=== PATIENT | male | born 1945 | race Caucasian/White ===

== ENCOUNTER 2017-11-03 12:13 | Inpatient (IN) | payer MEDICARE, BC ==
[~2017-11-03] VITALS: Ht 177.8 cm; Wt 97.0 kg
[~2017-11-03 12:13] MED LIST: ACET-2319 PO; ALT5C PO; AMIO200T57 PO; ASPI-10; ASPI-109; ATEN100T PO; CHOL500050 PO; CLOP75TA15 PO; DIAZ5TAB PO; FLUT1DIS4 INH; HYDR12.5 PO; MAGN400C PO; NITR0.4T48 SL; ROSU40TA PO; [UNRECOGNIZED DRUG - CODE] PO
[2017-11-03 13:07] LABS: BASOPHILS % (AUTO) 0 % (0-1); EOSINOPHILS % (AUTO) 0 % (0-6); HEMATOCRIT 37.8 % (42.0-52.0); HEMOGLOBIN 13.1 g/dl (14.0-17.9); LYMPHOCYTES # (AUTO) 0.7 X10'3 (1.1-4.8); LYMPHOCYTES % (AUTO) 4.6 % (21-51); MEAN CORPUSCULAR HEMOGLOBIN 33.8 PG (27.0-31.0); MEAN CORPUSCULAR HGB CONC 34.8 % (33.0-36.5); MEAN CORPUSCULAR VOLUME 97.1 FL (78-98); MEAN PLATELET VOLUME 8.1 FL (7.4-10.4); MONOCYTES # (AUTO) 1.2 X10'3 (0-0.9); MONOCYTES % (AUTO) 8.2 % (2-12); NEUTROPHILS # (AUTO) 13.1 X10'3 (1.8-7.7); NEUTROPHILS % (AUTO) 87.2 % (42-75); PLATELET COUNT 233 X10'3 (140-440); RED BLOOD COUNT 3.89 X10'6 (4.70-6.10); RED CELL DISTRIBUTION WIDTH 15.1 % (11.5-14.5)
[2017-11-03 13:17] LABS: INR 1.1 INR; PARTIAL THROMBOPLASTIN TIME 32 SECONDS (22-32); PROTHROMBIN TIME 11.2 SECONDS (9.0-12.0)
[2017-11-03 13:28] LABS: ALANINE AMINOTRANSFERASE 203 U/L (12-78); ALBUMIN 2.7 G/DL (3.4-5.0); ALBUMIN/GLOBULIN RATIO 0.6 (1.1-1.5); ALKALINE PHOSPHATASE 89 IU/L (46-116); ANION GAP 10 (8-16); ASPARTATE AMINO TRANSFERASE 321 U/L (10-37); BILIRUBIN,TOTAL 0.6 MG/DL (0.1-1.0); BLOOD UREA NITROGEN 36 MG/DL (7-18); CALCIUM 8.7 MG/DL (8.5-10.1); CHLORIDE 97 MMOL/L (99-107); GLUCOSE 98 MG/DL (70-104); MAGNESIUM 1.9 MG/DL (1.5-2.4); POTASSIUM 3.9 MMOL/L (3.5-5.1); SODIUM 136 MMOL/L (135-145); TOTAL CARBON DIOXIDE 28.6 MMOL/L (24-32); TOTAL PROTEIN 7.6 G/DL (6.4-8.2); eGFR 33 ML/MIN
[2017-11-03 14:45] LABS: TOTAL CELLS COUNTED 100
[2017-11-03 14:47] LABS: PLATELET ESTIMATE NORMAL
[2017-11-03] MEDS ORDERED: magnesium hydroxide 30ml (MOM) UD suspension PO PRN (15:10)
[2017-11-03] MEDS ORDERED: mag hydrox/Alum hydrox/simeth 30ml oral suspension PO PRN (15:10)
[2017-11-03 15:15] LABS: CLARITY,URINE Cloudy (Clear); COLOR,URINE Yellow (Yellow); GLUCOSE, URINE Negative (Neg); KETONES,URINE Negative (Neg); LEUKOCYTE ESTERASE ,URINE Negative (Neg); NITRITES, URINE Negative (Neg); OCCULT BLOOD,URINE Moderate (Neg); PROTEIN,URINE 30 mg/dl (Neg); UROBILINOGEN,URINE 0.2 E.U/dL (0.2-1.0)
[2017-11-03] MEDS ORDERED: levoFLOXACIN-Levaquin 500mg/D5 100 ML IV ONE (15:15)
[2017-11-03 15:16] LABS: UA COLLECTION TYPE STRAIGHT CATH
[2017-11-03 15:20] LABS: AMORPHOUS URATES 1+; BACTERIA,URINE NONE SEEN /HPF (Neg); SQUAMOUS EPITHELIAL CELL,UR NONE SEEN /LPF (FEW); WBC,URINE NONE SEEN /HPF (0-4)
[2017-11-03] MEDS ORDERED: azithromycin/NS 500mg/250ml 250 ML IV ONE (15:20)
[2017-11-03] MEDS: normal saline 1000ml 1,000 ML IV SCH ×2 (15:58→23:04)
[2017-11-03] MEDS ORDERED: vitamin D (cholecalciferol) 1,000 unit tablet PO SCH (16:15)
[2017-11-03] MEDS: amiodarone 200mg tablet PO SCH (16:15)
[2017-11-03] MEDS: clopidogrel 75mg tablet PO SCH (16:15)
[2017-11-03] MEDS ORDERED: nitroGLYCERIN 0.4mg SUBLingual tab SL PRN (16:15)
[2017-11-03 18:20] LABS: ALANINE AMINOTRANSFERASE 203 U/L (12-78); ALBUMIN 2.3 G/DL (3.4-5.0); ALBUMIN/GLOBULIN RATIO 0.5 (1.1-1.5); ALKALINE PHOSPHATASE 78 IU/L (46-116); ASPARTATE AMINO TRANSFERASE 315 U/L (10-37); BILIRUBIN,DIRECT 0.2 MG/DL (0-0.3); BILIRUBIN,TOTAL 0.5 MG/DL (0.1-1.0); TOTAL PROTEIN 6.8 G/DL (6.4-8.2)
[2017-11-03 20:40] VITALS: BP 129/57
[2017-11-03] MEDS ORDERED: diazepam 5mg tablet PO PRN (20:40)
[2017-11-03] MEDS ORDERED: acetaminophen 325mg tablet PO SCH (21:00)
[2017-11-03] MEDS: ondansetron/PF 4mg/2ml inj IV PRN (22:30)
[2017-11-03 23:00] VITALS: BP 110/55
[2017-11-04 03:00] VITALS: BP 95/59
[2017-11-04 03:27] LABS: BASOPHILS % (AUTO) 0.1 % (0-1); EOSINOPHILS % (AUTO) 0 % (0-6); HEMATOCRIT 37.2 % (42.0-52.0); HEMOGLOBIN 12.6 g/dl (14.0-17.9); LYMPHOCYTES # (AUTO) 0.7 X10'3 (1.1-4.8); LYMPHOCYTES % (AUTO) 5.3 % (21-51); MEAN CORPUSCULAR HEMOGLOBIN 33.6 PG (27.0-31.0); MEAN CORPUSCULAR HGB CONC 33.8 % (33.0-36.5); MEAN CORPUSCULAR VOLUME 99.4 FL (78-98); MEAN PLATELET VOLUME 8.7 FL (7.4-10.4); MONOCYTES # (AUTO) 1.4 X10'3 (0-0.9); NEUTROPHILS # (AUTO) 11.7 X10'3 (1.8-7.7); NEUTROPHILS % (AUTO) 84.6 % (42-75); PLATELET COUNT 210 X10'3 (140-440); RED BLOOD COUNT 3.74 X10'6 (4.70-6.10); RED CELL DISTRIBUTION WIDTH 15.7 % (11.5-14.5); WHITE BLOOD COUNT 13.8 X10'3 (4.5-11.0)
[2017-11-04 03:47] LABS: ALANINE AMINOTRANSFERASE 253 U/L (12-78); ALBUMIN 2.3 G/DL (3.4-5.0); ALBUMIN/GLOBULIN RATIO 0.5 (1.1-1.5); ALKALINE PHOSPHATASE 78 IU/L (46-116); ANION GAP 7 (8-16); ASPARTATE AMINO TRANSFERASE 388 U/L (10-37); BILIRUBIN,TOTAL 0.4 MG/DL (0.1-1.0); BLOOD UREA NITROGEN 42 MG/DL (7-18); BUN/CREATININE RATIO 21.2 (5.4-32.0); CHLORIDE 102 MMOL/L (99-107); CREATININE 1.98 MG/DL (0.60-1.10); GLUCOSE 107 MG/DL (70-104); POTASSIUM 3.8 MMOL/L (3.5-5.1); SODIUM 139 MMOL/L (135-145); TOTAL CARBON DIOXIDE 30.1 MMOL/L (24-32); TOTAL PROTEIN 6.9 G/DL (6.4-8.2); eGFR 33 ML/MIN
[2017-11-04] MEDS: acetaminophen 325mg tablet PO PRN ×2 (03:51→23:06)
[2017-11-04] MEDS: normal saline 1000ml 1,000 ML IV SCH ×2 (04:56→11:15)
[2017-11-04 06:00] VITALS: BP 90/50
[2017-11-04] MEDS: atorvastatin 20mg tablet PO SCH (07:40)
[2017-11-04] MEDS: amiodarone 200mg tablet PO SCH (07:40)
[2017-11-04] MEDS: clopidogrel 75mg tablet PO SCH (07:40)
[2017-11-04] MEDS ORDERED: aspirin 325mg tablet PO SCH (08:00)
[2017-11-04 11:00] VITALS: BP 124/68
[2017-11-04] MEDS: ondansetron/PF 4mg/2ml inj IV PRN ×2 (14:34→23:04)
[2017-11-04 15:00] VITALS: BP 102/50
[2017-11-04] MEDS ORDERED: cefTRIAXone 1g/NS 100ml IVPB 100 ML IV ONE (18:50)
[2017-11-04] MEDS ORDERED: azithromycin/NS 500mg/250ml 250 ML IV ONE (18:50)
[2017-11-04 19:00] VITALS: BP 114/54
[2017-11-04] MEDS: ipratropium/albuterol 3ml nebule IH PRN ×2 (19:54→23:28)
[2017-11-04 22:36] LABS: ABG BASE EXCESS -1.6 mmol/L (-2.0-3.0); ABG HCO3 25.7 mmol/L (22.0-26.0); ABG PCO2 (T) 56.9 mmHg (35.0-48.0); ABG PH (T) 7.278 (7.350-7.450); ABG PO2 (T) 83.7 mmHg (83-108); FCOHb 0.7 % (0.5-1.5); FLOW 6 L/min; FMetHb 0.3 % (0.3-1.12); FO2Hb 93.1 % (94-100); PATIENT TEMPERATURE 38.1; RESPIRATORY RATE (OBSERVED) 28 b/min; TOTAL HEMOGLOBIN 12.6 G/dl (14.0-18.0)
[2017-11-04] MEDS ORDERED: proCHLORperazine 10 MG/2 ml inj IV PRN (22:50)
[2017-11-04 23:00] VITALS: BP 85/60
[2017-11-04] MEDS: diazepam 5mg tablet PO PRN (23:12)
[2017-11-05] VITALS (8 sets, daily range): BP systolic 88–111; BP diastolic 47–60
[2017-11-05 01:06] LABS: ABG BASE EXCESS -1.6 mmol/L (-2.0-3.0); ABG HCO3 25.3 mmol/L (22.0-26.0); ABG OXYGEN SATURATION 90.3 % (95-98); ABG PCO2 (T) 53.4 mmHg (35.0-48.0); ABG PH (T) 7.296 (7.350-7.450); ABG PO2 (T) 63.4 mmHg (83-108); ALLEN'S TEST Positive; FCOHb 0.4 % (0.5-1.5); FMetHb 0.3 % (0.3-1.12); FO2Hb 89.7 % (94-100); MINUTE VOLUME 10 L/min; PATIENT TEMPERATURE 37.7; RESPIRATORY RATE (OBSERVED) 20 b/min; TOTAL HEMOGLOBIN 12.1 G/dl (14.0-18.0)
[2017-11-05] MEDS: ipratropium/albuterol 3ml nebule IH PRN ×3 (03:25→23:30)
[2017-11-05] MEDS: cefTRIAXone 1g/NS 100ml IVPB 100 ML IV SCH (08:23)
[2017-11-05] MEDS: azithromycin/NS 500mg/250ml 250 ML IV SCH (09:22)
[2017-11-05] MEDS: atorvastatin 20mg tablet PO SCH (09:24)
[2017-11-05] MEDS: clopidogrel 75mg tablet PO SCH (09:24)
[2017-11-05] MEDS: aspirin 81mg tab.chew PO SCH (09:25)
[2017-11-05] MEDS: acetaminophen 325mg tablet PO PRN ×2 (13:35→19:55)
[2017-11-05 20:40] LABS: ABG BASE EXCESS -1.4 mmol/L (-2.0-3.0); ABG HCO3 24.2 mmol/L (22.0-26.0); ABG OXYGEN SATURATION 87.8 % (95-98); ABG PCO2 (T) 48.7 mmHg (35.0-48.0); ABG PH (T) 7.324 (7.350-7.450); FCOHb 0.5 % (0.5-1.5); FLOW 5 L/min; FMetHb 0.3 % (0.3-1.12); FO2Hb 87.1 % (94-100); PATIENT TEMPERATURE 39.2; RESPIRATORY RATE (OBSERVED) 22 b/min; TOTAL HEMOGLOBIN 12.1 G/dl (14.0-18.0)
[2017-11-05 21:19] LABS: BASOPHILS % (AUTO) 0.1 % (0-1); EOSINOPHILS % (AUTO) 0 % (0-6); HEMATOCRIT 35.9 % (42.0-52.0); HEMOGLOBIN 12.1 g/dl (14.0-17.9); LYMPHOCYTES % (AUTO) 9.5 % (21-51); MEAN CORPUSCULAR HEMOGLOBIN 33.4 PG (27.0-31.0); MEAN CORPUSCULAR HGB CONC 33.9 % (33.0-36.5); MEAN CORPUSCULAR VOLUME 98.6 FL (78-98); MEAN PLATELET VOLUME 8.9 FL (7.4-10.4); NEUTROPHILS % (AUTO) 81.4 % (42-75); PLATELET COUNT 193 X10'3 (140-440); RED BLOOD COUNT 3.64 X10'6 (4.70-6.10); RED CELL DISTRIBUTION WIDTH 16.4 % (11.5-14.5)
[2017-11-05 21:34] LABS: ALANINE AMINOTRANSFERASE 296 U/L (12-78); ALBUMIN/GLOBULIN RATIO 0.4 (1.1-1.5); ALKALINE PHOSPHATASE 88 IU/L (46-116); ANION GAP 6 (8-16); ASPARTATE AMINO TRANSFERASE 464 U/L (10-37); BILIRUBIN,TOTAL 0.4 MG/DL (0.1-1.0); BLOOD UREA NITROGEN 55 MG/DL (7-18); BUN/CREATININE RATIO 23.4 (5.4-32.0); CHLORIDE 103 MMOL/L (99-107); CREATININE 2.35 MG/DL (0.60-1.10); GLUCOSE 123 MG/DL (70-104); POTASSIUM 4.1 MMOL/L (3.5-5.1); SODIUM 138 MMOL/L (135-145); TOTAL CARBON DIOXIDE 28.8 MMOL/L (24-32); TOTAL PROTEIN 6.5 G/DL (6.4-8.2); eGFR 27 ML/MIN
[2017-11-05] MEDS: diazepam 5mg tablet PO PRN (22:28)
[2017-11-06] MEDS: acetaminophen 325mg tablet PO PRN ×2 (02:20→19:38)
[2017-11-06] MEDS ORDERED: LORazepam 2 mg/ml vial IV PRN (02:55)
[2017-11-06 03:00] VITALS: BP 122/72
[2017-11-06] MEDS: ipratropium/albuterol 3ml nebule IH PRN (03:34)
[2017-11-06] MEDS: LORazepam 2 mg/ml vial IV PRN ×3 (05:07→11:42)
[2017-11-06 06:09] LABS: BASOPHILS % (AUTO) 0 % (0-1); EOSINOPHILS % (AUTO) 0 % (0-6); HEMATOCRIT 31.9 % (42.0-52.0); HEMOGLOBIN 10.9 g/dl (14.0-17.9); LYMPHOCYTES # (AUTO) 0.7 X10'3 (1.1-4.8); LYMPHOCYTES % (AUTO) 8.4 % (21-51); MEAN CORPUSCULAR HEMOGLOBIN 33.1 PG (27.0-31.0); MEAN CORPUSCULAR HGB CONC 34.1 % (33.0-36.5); MEAN CORPUSCULAR VOLUME 97.2 FL (78-98); MEAN PLATELET VOLUME 8.5 FL (7.4-10.4); MONOCYTES # (AUTO) 0.8 X10'3 (0-0.9); MONOCYTES % (AUTO) 9.1 % (2-12); NEUTROPHILS % (AUTO) 82.5 % (42-75); PLATELET COUNT 180 X10'3 (140-440); RED BLOOD COUNT 3.28 X10'6 (4.70-6.10); RED CELL DISTRIBUTION WIDTH 16.6 % (11.5-14.5); WHITE BLOOD COUNT 8.5 X10'3 (4.5-11.0)
[2017-11-06 06:32] LABS: ALANINE AMINOTRANSFERASE 250 U/L (12-78); ALBUMIN 1.8 G/DL (3.4-5.0); ALBUMIN/GLOBULIN RATIO 0.5 (1.1-1.5); ALKALINE PHOSPHATASE 78 IU/L (46-116); ANION GAP 7 (8-16); ASPARTATE AMINO TRANSFERASE 401 U/L (10-37); BILIRUBIN,DIRECT 0.2 MG/DL (0-0.3); BILIRUBIN,TOTAL 0.4 MG/DL (0.1-1.0); BLOOD UREA NITROGEN 55 MG/DL (7-18); BUN/CREATININE RATIO 22.4 (5.4-32.0); CHLORIDE 105 MMOL/L (99-107); CREATININE 2.45 MG/DL (0.60-1.10); GLUCOSE 110 MG/DL (70-104); POTASSIUM 3.7 MMOL/L (3.5-5.1); SODIUM 141 MMOL/L (135-145); TOTAL CARBON DIOXIDE 29.2 MMOL/L (24-32); TOTAL PROTEIN 5.8 G/DL (6.4-8.2); eGFR 26 ML/MIN
[2017-11-06 07:00] VITALS: BP 99/46
[2017-11-06] MEDS: aspirin 81mg tab.chew PO SCH (07:35)
[2017-11-06] MEDS: clopidogrel 75mg tablet PO SCH (07:35)
[2017-11-06] MEDS: atorvastatin 20mg tablet PO SCH (07:35)
[2017-11-06] MEDS: cefTRIAXone 1g/NS 100ml IVPB 100 ML IV SCH (07:35)
[2017-11-06] MEDS: azithromycin/NS 500mg/250ml 250 ML IV SCH (08:48)
[2017-11-06 11:00] VITALS: BP 103/60
[2017-11-06] MEDS: LACTOSE-FREE FOOD 237ML (BOOST) PO SCH ×2 (13:00→18:00)
[2017-11-06 15:00] VITALS: BP 100/49
[2017-11-06] MEDS: lactobacillus rhamnosus 10,000 MMU CELLS/CAPSULE PO SCH (17:18)
[2017-11-06 19:00] VITALS: BP 107/39
[2017-11-06 22:25] LABS: ABG BASE EXCESS 0.9 mmol/L (-2.0-3.0); ABG HCO3 26.9 mmol/L (22.0-26.0); ABG OXYGEN SATURATION 90.3 % (95-98); ABG PCO2 (T) 49.5 mmHg (35.0-48.0); ABG PH (T) 7.354 (7.350-7.450); ABG PO2 (T) 61.4 mmHg (83-108); ALLEN'S TEST Positive; FCOHb 0.5 % (0.5-1.5); FLOW 5 L/min; FMetHb 0.3 % (0.3-1.12); FO2Hb 89.6 % (94-100); PATIENT TEMPERATURE 37.2; RESPIRATORY RATE (OBSERVED) 20 b/min
[2017-11-06 23:00] VITALS: BP 119/62
[2017-11-07 03:00] VITALS: BP 118/54
[2017-11-07 05:28] LABS: BASOPHILS % (AUTO) 0 % (0-1); EOSINOPHILS % (AUTO) 0 % (0-6); HEMATOCRIT 33.7 % (42.0-52.0); HEMOGLOBIN 11.8 g/dl (14.0-17.9); LYMPHOCYTES # (AUTO) 0.8 X10'3 (1.1-4.8); LYMPHOCYTES % (AUTO) 5.9 % (21-51); MEAN CORPUSCULAR HEMOGLOBIN 33.7 PG (27.0-31.0); MEAN CORPUSCULAR VOLUME 96.3 FL (78-98); MEAN PLATELET VOLUME 8.9 FL (7.4-10.4); MONOCYTES # (AUTO) 1.1 X10'3 (0-0.9); NEUTROPHILS # (AUTO) 12.2 X10'3 (1.8-7.7); NEUTROPHILS % (AUTO) 86.1 % (42-75); PLATELET COUNT 178 X10'3 (140-440); RED CELL DISTRIBUTION WIDTH 16.2 % (11.5-14.5); WHITE BLOOD COUNT 14.2 X10'3 (4.5-11.0)
[2017-11-07 05:58] LABS: ALANINE AMINOTRANSFERASE 244 U/L (12-78); ALBUMIN 1.8 G/DL (3.4-5.0); ALBUMIN/GLOBULIN RATIO 0.4 (1.1-1.5); ALKALINE PHOSPHATASE 99 IU/L (46-116); ANION GAP 8 (8-16); ASPARTATE AMINO TRANSFERASE 424 U/L (10-37); BILIRUBIN,TOTAL 0.5 MG/DL (0.1-1.0); BLOOD UREA NITROGEN 47 MG/DL (7-18); BUN/CREATININE RATIO 22.1 (5.4-32.0); CALCIUM 7.9 MG/DL (8.5-10.1); CHLORIDE 104 MMOL/L (99-107); CREATININE 2.13 MG/DL (0.60-1.10); GLUCOSE 111 MG/DL (70-104); SODIUM 140 MMOL/L (135-145); TOTAL CARBON DIOXIDE 28.3 MMOL/L (24-32); TOTAL PROTEIN 5.9 G/DL (6.4-8.2); eGFR 31 ML/MIN
[2017-11-07 06:00] VITALS: BP 94/50
[2017-11-07] MEDS: LACTOSE-FREE FOOD 237ML (BOOST) PO SCH ×3 (08:00→18:00)
[2017-11-07] MEDS: atorvastatin 20mg tablet PO SCH (08:00)
[2017-11-07] MEDS: clopidogrel 75mg tablet PO SCH (08:00)
[2017-11-07] MEDS: azithromycin/NS 500mg/250ml 250 ML IV SCH (08:21)
[2017-11-07] MEDS: lactobacillus rhamnosus 10,000 MMU CELLS/CAPSULE PO SCH ×2 (08:21→17:30)
[2017-11-07] MEDS: aspirin 81mg tab.chew PO SCH (08:30)
[2017-11-07] MEDS: cefTRIAXone 1g/NS 100ml IVPB 100 ML IV SCH (09:43)
[2017-11-07 11:00] VITALS: BP 113/47
[2017-11-07 15:00] VITALS: BP 109/59
[2017-11-07 19:00] VITALS: BP 100/46
[2017-11-07 23:00] VITALS: BP 109/49
[2017-11-08] VITALS (8 sets, daily range): BP systolic 94–108; BP diastolic 41–57
[2017-11-08] MEDS: azithromycin/NS 500mg/250ml 250 ML IV SCH (07:13)
[2017-11-08] MEDS: LACTOSE-FREE FOOD 237ML (BOOST) PO SCH ×3 (08:00→18:00)
[2017-11-08] MEDS: cefTRIAXone 1g/NS 100ml IVPB 100 ML IV SCH (08:33)
[2017-11-08] MEDS: atorvastatin 20mg tablet PO SCH (08:35)
[2017-11-08] MEDS: lactobacillus rhamnosus 10,000 MMU CELLS/CAPSULE PO SCH ×2 (08:35→17:30)
[2017-11-08] MEDS: clopidogrel 75mg tablet PO SCH (08:37)
[2017-11-08] MEDS: aspirin 81mg tab.chew PO SCH (08:37)
[2017-11-08 13:45] LABS: ABG BASE EXCESS 2.8 mmol/L (-2.0-3.0); ABG HCO3 29.7 mmol/L (22.0-26.0); ABG OXYGEN SATURATION 90.1 % (95-98); ABG PCO2 (T) 56.9 mmHg (35.0-48.0); ABG PH (T) 7.336 (7.350-7.450); ABG PO2 (T) 60.9 mmHg (83-108); ALLEN'S TEST Positive; FCOHb 0.7 % (0.5-1.5); FLOW 5 L/min; FMetHb 0.3 % (0.3-1.12); FO2Hb 89.2 % (94-100)
[2017-11-08 14:53] LABS: SODIUM,URINE RANDOM < 15 MEQ/L
[2017-11-09] VITALS (8 sets, daily range): BP systolic 101–113; BP diastolic 42–54
[2017-11-09] MEDS ORDERED: albumin (human) 25% 100 ML IV solution IV ONE (00:45)
[2017-11-09] MEDS ORDERED: furosemide 40mg/4ml inj IV ONE (00:45)
[2017-11-09] MEDS: azithromycin/NS 500mg/250ml 250 ML IV SCH (08:00)
[2017-11-09] MEDS: LACTOSE-FREE FOOD 237ML (BOOST) PO SCH ×3 (08:00→18:00)
[2017-11-09] MEDS: lactobacillus rhamnosus 10,000 MMU CELLS/CAPSULE PO SCH ×2 (10:39→17:06)
[2017-11-09] MEDS: atorvastatin 20mg tablet PO SCH (10:40)
[2017-11-09] MEDS: aspirin 81mg tab.chew PO SCH (10:40)
[2017-11-09] MEDS: clopidogrel 75mg tablet PO SCH (10:40)
[2017-11-09] MEDS: cefTRIAXone 1g/NS 100ml IVPB 100 ML IV SCH (10:42)
[2017-11-09] MEDS ORDERED: ipratropium/albuterol 3ml nebule NEB PRN (14:00)
[2017-11-09] MEDS: ipratropium/albuterol 3ml nebule NEB SCH ×2 (14:40→20:11)
[2017-11-09] MEDS: normal saline 1000ml 1,000 ML IV SCH ×2 (17:06→23:18)
[2017-11-10] MEDS ORDERED: LORazepam 2 mg/ml vial IV PRN (00:10)
[2017-11-10 03:00] VITALS: BP 120/48
[2017-11-10] MEDS: ipratropium/albuterol 3ml nebule NEB SCH ×4 (03:43→20:16)
[2017-11-10 06:44] VITALS: BP 125/54
[2017-11-10 06:58] LABS: BASOPHILS % (AUTO) 0.1 % (0-1); EOSINOPHILS # (AUTO) 0.1 X10'3 (0-0.9); EOSINOPHILS % (AUTO) 1.1 % (0-6); HEMOGLOBIN 10.3 g/dl (14.0-17.9); LYMPHOCYTES # (AUTO) 0.5 X10'3 (1.1-4.8); LYMPHOCYTES % (AUTO) 5.6 % (21-51); MEAN CORPUSCULAR HEMOGLOBIN 33.2 PG (27.0-31.0); MEAN CORPUSCULAR HGB CONC 34.3 % (33.0-36.5); MEAN CORPUSCULAR VOLUME 96.8 FL (78-98); MONOCYTES # (AUTO) 1.1 X10'3 (0-0.9); MONOCYTES % (AUTO) 11.9 % (2-12); NEUTROPHILS # (AUTO) 7.3 X10'3 (1.8-7.7); NEUTROPHILS % (AUTO) 81.3 % (42-75); PLATELET COUNT 204 X10'3 (140-440); RED CELL DISTRIBUTION WIDTH 16.6 % (11.5-14.5)
[2017-11-10] MEDS: cefTRIAXone 1g/NS 100ml IVPB 100 ML IV SCH (07:36)
[2017-11-10] MEDS: lactobacillus rhamnosus 10,000 MMU CELLS/CAPSULE PO SCH ×2 (07:36→21:22)
[2017-11-10] MEDS: clopidogrel 75mg tablet PO SCH (07:36)
[2017-11-10] MEDS: aspirin 81mg tab.chew PO SCH (07:36)
[2017-11-10] MEDS: azithromycin/NS 500mg/250ml 250 ML IV SCH (07:36)
[2017-11-10 07:37] LABS: ALANINE AMINOTRANSFERASE 150 U/L (12-78); ALBUMIN/GLOBULIN RATIO 0.5 (1.1-1.5); ALKALINE PHOSPHATASE 158 IU/L (46-116); ANION GAP 8 (8-16); ASPARTATE AMINO TRANSFERASE 246 U/L (10-37); BILIRUBIN,TOTAL 1.3 MG/DL (0.1-1.0); BLOOD UREA NITROGEN 53 MG/DL (7-18); BUN/CREATININE RATIO 25.2 (5.4-32.0); CALCIUM 7.8 MG/DL (8.5-10.1); CHLORIDE 107 MMOL/L (99-107); GLUCOSE 100 MG/DL (70-104); POTASSIUM 3.4 MMOL/L (3.5-5.1); SODIUM 144 MMOL/L (135-145); TOTAL CARBON DIOXIDE 28.7 MMOL/L (24-32); TOTAL PROTEIN 5.7 G/DL (6.4-8.2); eGFR 31 ML/MIN
[2017-11-10] MEDS: LACTOSE-FREE FOOD 237ML (BOOST) PO SCH ×3 (07:37→18:00)
[2017-11-10] MEDS: normal saline 1000ml 1,000 ML IV SCH (11:16)
[2017-11-10] MEDS ORDERED: methylPREDNISolone sod succ 125mg/2ml vial IV ONE (12:20)
[2017-11-10 12:22] VITALS: BP 124/47
[2017-11-10] MEDS ORDERED: Neutra Phos packet PO PRN (12:30)
[2017-11-10] MEDS ORDERED: potassium Cl 40MEQ/NS 500ml 500 ML IV PRN ×2 (12:30)
[2017-11-10] MEDS ORDERED: sodium phosphate inj. 15 MMOL in dextrose 5%-water 150 ML IV PRN (12:30)
[2017-11-10] MEDS ORDERED: magnesium hydroxide 30ml (MOM) UD suspension PO PRN (12:30)
[2017-11-10] MEDS ORDERED: potassium Cl 20 mEq SR tablet PO PRN ×2 (12:30)
[2017-11-10] MEDS ORDERED: sodium phosphate inj. 30 MMOL in dextrose 5%-water 250 ML IV PRN (12:30)
[2017-11-10] MEDS ORDERED: methylPREDNISolone sod succ 125mg/2ml vial IV SCH (14:00)
[2017-11-10] MEDS: Potassium Cl inj 20 MEQ in normal saline 1000ml 990 ML IV SCH (14:25)
[2017-11-10 16:58] VITALS: BP 123/54
[2017-11-10 19:00] VITALS: BP 119/53
[2017-11-10] MEDS: methylPREDNISolone sod succ 125mg/2ml vial IV SCH (21:14)
[2017-11-10 23:00] VITALS: BP 111/54
[2017-11-11] MEDS: ipratropium/albuterol 3ml nebule NEB SCH ×4 (02:10→20:34)
[2017-11-11] MEDS: methylPREDNISolone sod succ 125mg/2ml vial IV SCH ×4 (02:39→20:00)
[2017-11-11] MEDS: Potassium Cl inj 20 MEQ in normal saline 1000ml 990 ML IV SCH (02:40)
[2017-11-11 03:00] VITALS: BP 104/50
[2017-11-11 06:06] LABS: BASOPHILS % (AUTO) 0 % (0-1); EOSINOPHILS # (AUTO) 0.1 X10'3 (0-0.9); EOSINOPHILS % (AUTO) 1.4 % (0-6); HEMATOCRIT 33.3 % (42.0-52.0); HEMOGLOBIN 11.4 g/dl (14.0-17.9); LYMPHOCYTES # (AUTO) 0.2 X10'3 (1.1-4.8); LYMPHOCYTES % (AUTO) 2.3 % (21-51); MEAN CORPUSCULAR HEMOGLOBIN 33.4 PG (27.0-31.0); MEAN CORPUSCULAR HGB CONC 34.3 % (33.0-36.5); MEAN CORPUSCULAR VOLUME 97.3 FL (78-98); MONOCYTES # (AUTO) 0.3 X10'3 (0-0.9); MONOCYTES % (AUTO) 4.1 % (2-12); NEUTROPHILS # (AUTO) 7.6 X10'3 (1.8-7.7); NEUTROPHILS % (AUTO) 92.2 % (42-75); PLATELET COUNT 259 X10'3 (140-440); RED BLOOD COUNT 3.42 X10'6 (4.70-6.10); RED CELL DISTRIBUTION WIDTH 17.4 % (11.5-14.5); WHITE BLOOD COUNT 8.3 X10'3 (4.5-11.0)
[2017-11-11 06:35] VITALS: BP 124/59
[2017-11-11 07:07] LABS: ALANINE AMINOTRANSFERASE 153 U/L (12-78); ALBUMIN 2.1 G/DL (3.4-5.0); ALBUMIN/GLOBULIN RATIO 0.5 (1.1-1.5); ALKALINE PHOSPHATASE 198 IU/L (46-116); ANION GAP 9 (8-16); ASPARTATE AMINO TRANSFERASE 244 U/L (10-37); BILIRUBIN,TOTAL 0.9 MG/DL (0.1-1.0); BLOOD UREA NITROGEN 60 MG/DL (7-18); BUN/CREATININE RATIO 27.8 (5.4-32.0); CALCIUM 8.3 MG/DL (8.5-10.1); CHLORIDE 111 MMOL/L (99-107); CREATININE 2.16 MG/DL (0.60-1.10); GLUCOSE 158 MG/DL (70-104); MAGNESIUM 2.2 MG/DL (1.5-2.4); PHOSPHORUS 5.8 MG/DL (2.3-4.5); POTASSIUM 4.9 MMOL/L (3.5-5.1); SODIUM 147 MMOL/L (135-145); TOTAL CARBON DIOXIDE 27.1 MMOL/L (24-32); TOTAL PROTEIN 6.5 G/DL (6.4-8.2); eGFR 30 ML/MIN
[2017-11-11] MEDS: LACTOSE-FREE FOOD 237ML (BOOST) PO SCH ×3 (08:00→18:00)
[2017-11-11] MEDS: lactobacillus rhamnosus 10,000 MMU CELLS/CAPSULE PO SCH ×2 (08:00→20:00)
[2017-11-11] MEDS: clopidogrel 75mg tablet PO SCH (08:00)
[2017-11-11] MEDS: cefTRIAXone 1g/NS 100ml IVPB 100 ML IV SCH (08:03)
[2017-11-11] MEDS: aspirin 81mg tab.chew PO SCH (08:08)
[2017-11-11] MEDS: azithromycin/NS 500mg/250ml 250 ML IV SCH (08:09)
[2017-11-11] MEDS: K and/or MAG REPLACEMENT MC SCH (08:11)
[2017-11-11 11:00] VITALS: BP 112/54
[2017-11-11 15:00] VITALS: BP 117/59
[2017-11-11] MEDS: potassium cl 20mEq in 1/2 NS 1,000 ML IV SCH ×2 (15:35→21:05)
[2017-11-11 18:00] VITALS: BP 118/54
[2017-11-11 22:00] VITALS: BP 119/54
[2017-11-12] VITALS (7 sets, daily range): BP systolic 107–133; BP diastolic 52–78
[2017-11-12] MEDS: ipratropium/albuterol 3ml nebule NEB SCH ×4 (02:33→20:47)
[2017-11-12] MEDS: methylPREDNISolone sod succ 125mg/2ml vial IV SCH ×2 (02:57→09:48)
[2017-11-12 06:14] LABS: BASOPHILS % (AUTO) 0 % (0-1); EOSINOPHILS # (AUTO) 0.1 X10'3 (0-0.9); EOSINOPHILS % (AUTO) 0.8 % (0-6); HEMATOCRIT 31.7 % (42.0-52.0); HEMOGLOBIN 10.7 g/dl (14.0-17.9); LYMPHOCYTES # (AUTO) 0.2 X10'3 (1.1-4.8); LYMPHOCYTES % (AUTO) 1.5 % (21-51); MEAN CORPUSCULAR HEMOGLOBIN 32.8 PG (27.0-31.0); MEAN CORPUSCULAR HGB CONC 33.8 % (33.0-36.5); MEAN CORPUSCULAR VOLUME 97.1 FL (78-98); MEAN PLATELET VOLUME 9.3 FL (7.4-10.4); MONOCYTES # (AUTO) 0.5 X10'3 (0-0.9); MONOCYTES % (AUTO) 4.3 % (2-12); NEUTROPHILS # (AUTO) 10.7 X10'3 (1.8-7.7); NEUTROPHILS % (AUTO) 93.4 % (42-75); PLATELET COUNT 252 X10'3 (140-440); RED BLOOD COUNT 3.26 X10'6 (4.70-6.10); RED CELL DISTRIBUTION WIDTH 16.5 % (11.5-14.5); WHITE BLOOD COUNT 11.5 X10'3 (4.5-11.0)
[2017-11-12 06:58] LABS: ALANINE AMINOTRANSFERASE 130 U/L (12-78); ALBUMIN/GLOBULIN RATIO 0.5 (1.1-1.5); ALKALINE PHOSPHATASE 209 IU/L (46-116); ANION GAP 11 (8-16); ASPARTATE AMINO TRANSFERASE 151 U/L (10-37); BILIRUBIN,TOTAL 0.7 MG/DL (0.1-1.0); BLOOD UREA NITROGEN 63 MG/DL (7-18); BUN/CREATININE RATIO 32.8 (5.4-32.0); CALCIUM 8.2 MG/DL (8.5-10.1); CHLORIDE 113 MMOL/L (99-107); CREATININE 1.92 MG/DL (0.60-1.10); GLUCOSE 138 MG/DL (70-104); MAGNESIUM 2.1 MG/DL (1.5-2.4); PHOSPHORUS 3.2 MG/DL (2.3-4.5); POTASSIUM 4.4 MMOL/L (3.5-5.1); SODIUM 149 MMOL/L (135-145); TOTAL CARBON DIOXIDE 24.7 MMOL/L (24-32); TOTAL PROTEIN 6.3 G/DL (6.4-8.2); eGFR 34 ML/MIN
[2017-11-12] MEDS: K and/or MAG REPLACEMENT MC SCH (07:06)
[2017-11-12] MEDS: LACTOSE-FREE FOOD 237ML (BOOST) PO SCH ×3 (08:00→18:00)
[2017-11-12] MEDS: clopidogrel 75mg tablet PO SCH (09:48)
[2017-11-12] MEDS: lactobacillus rhamnosus 10,000 MMU CELLS/CAPSULE PO SCH ×2 (09:49→20:49)
[2017-11-12] MEDS: aspirin 81mg tab.chew PO SCH (09:49)
[2017-11-12] MEDS: cefTRIAXone 1g/NS 100ml IVPB 100 ML IV SCH (09:50)
[2017-11-12] MEDS: azithromycin/NS 500mg/250ml 250 ML IV SCH (09:50)
[2017-11-12] MEDS ORDERED: furosemide 40mg/4ml inj IV SCH (11:10)
[2017-11-12] MEDS: furosemide 40mg/4ml inj IV SCH ×2 (13:58→20:54)
[2017-11-13 02:00] VITALS: BP 131/61
[2017-11-13] MEDS: ipratropium/albuterol 3ml nebule NEB SCH ×4 (03:10→20:40)
[2017-11-13 06:00] VITALS: BP 118/92
[2017-11-13 06:09] LABS: BASOPHILS % (AUTO) 0 % (0-1); EOSINOPHILS % (AUTO) 0 % (0-6); HEMATOCRIT 30.8 % (42.0-52.0); HEMOGLOBIN 10.6 g/dl (14.0-17.9); LYMPHOCYTES # (AUTO) 0.2 X10'3 (1.1-4.8); LYMPHOCYTES % (AUTO) 1.3 % (21-51); MEAN CORPUSCULAR HEMOGLOBIN 33.1 PG (27.0-31.0); MEAN CORPUSCULAR HGB CONC 34.6 % (33.0-36.5); MEAN CORPUSCULAR VOLUME 95.6 FL (78-98); MEAN PLATELET VOLUME 9.8 FL (7.4-10.4); MONOCYTES # (AUTO) 0.8 X10'3 (0-0.9); MONOCYTES % (AUTO) 5.7 % (2-12); NEUTROPHILS # (AUTO) 12.6 X10'3 (1.8-7.7); PLATELET COUNT 254 X10'3 (140-440); RED BLOOD COUNT 3.22 X10'6 (4.70-6.10); RED CELL DISTRIBUTION WIDTH 16.6 % (11.5-14.5); WHITE BLOOD COUNT 13.5 X10'3 (4.5-11.0)
[2017-11-13 06:23] LABS: ALANINE AMINOTRANSFERASE 135 U/L (12-78); ALBUMIN 2.1 G/DL (3.4-5.0); ALBUMIN/GLOBULIN RATIO 0.5 (1.1-1.5); ALKALINE PHOSPHATASE 245 IU/L (46-116); ANION GAP 8 (8-16); ASPARTATE AMINO TRANSFERASE 155 U/L (10-37); BILIRUBIN,TOTAL 0.8 MG/DL (0.1-1.0); BLOOD UREA NITROGEN 73 MG/DL (7-18); BUN/CREATININE RATIO 34.3 (5.4-32.0); CALCIUM 8.2 MG/DL (8.5-10.1); CHLORIDE 112 MMOL/L (99-107); CREATININE 2.13 MG/DL (0.60-1.10); GLUCOSE 135 MG/DL (70-104); PHOSPHORUS 3.2 MG/DL (2.3-4.5); POTASSIUM 3.7 MMOL/L (3.5-5.1); SODIUM 149 MMOL/L (135-145); TOTAL CARBON DIOXIDE 29.5 MMOL/L (24-32); TOTAL PROTEIN 6.2 G/DL (6.4-8.2); eGFR 31 ML/MIN
[2017-11-13] MEDS: LACTOSE-FREE FOOD 237ML (BOOST) PO SCH ×3 (08:00→18:00)
[2017-11-13] MEDS: K and/or MAG REPLACEMENT MC SCH (08:00)
[2017-11-13] MEDS: furosemide 40mg/4ml inj IV SCH ×2 (08:37→20:14)
[2017-11-13] MEDS: azithromycin/NS 500mg/250ml 250 ML IV SCH (08:37)
[2017-11-13] MEDS: lactobacillus rhamnosus 10,000 MMU CELLS/CAPSULE PO SCH ×2 (08:37→20:00)
[2017-11-13] MEDS: clopidogrel 75mg tablet PO SCH (08:37)
[2017-11-13] MEDS: aspirin 81mg tab.chew PO SCH (08:38)
[2017-11-13] MEDS: predniSONE 20 mg tablet PO SCH (08:38)
[2017-11-13] MEDS: cefTRIAXone 1g/NS 100ml IVPB 100 ML IV SCH (10:47)
[2017-11-13 11:00] VITALS: BP 124/61
[2017-11-13 15:00] VITALS: BP 114/56
[2017-11-13] MEDS ORDERED: lactulose 20gm/30ml cup PO ONE (18:20)
[2017-11-13 18:30] VITALS: BP 126/55
[2017-11-13 22:00] VITALS: BP 130/55
[2017-11-14] MEDS: ipratropium/albuterol 3ml nebule NEB SCH ×4 (02:48→19:45)
[2017-11-14 06:00] VITALS: BP 104/48
[2017-11-14 06:02] LABS: BASOPHILS % (AUTO) 0.3 % (0-1); EOSINOPHILS % (AUTO) 0.1 % (0-6); HEMOGLOBIN 11.3 g/dl (14.0-17.9); LYMPHOCYTES # (AUTO) 0.4 X10'3 (1.1-4.8); LYMPHOCYTES % (AUTO) 2.8 % (21-51); MEAN CORPUSCULAR HEMOGLOBIN 32.7 PG (27.0-31.0); MEAN CORPUSCULAR HGB CONC 34.2 % (33.0-36.5); MEAN CORPUSCULAR VOLUME 95.8 FL (78-98); MEAN PLATELET VOLUME 9.9 FL (7.4-10.4); MONOCYTES # (AUTO) 1.1 X10'3 (0-0.9); MONOCYTES % (AUTO) 7.9 % (2-12); NEUTROPHILS % (AUTO) 88.9 % (42-75); PLATELET COUNT 224 X10'3 (140-440); RED BLOOD COUNT 3.45 X10'6 (4.70-6.10); RED CELL DISTRIBUTION WIDTH 16.6 % (11.5-14.5); WHITE BLOOD COUNT 13.5 X10'3 (4.5-11.0)
[2017-11-14 06:24] LABS: ALANINE AMINOTRANSFERASE 153 U/L (12-78); ALBUMIN 2.2 G/DL (3.4-5.0); ALBUMIN/GLOBULIN RATIO 0.5 (1.1-1.5); ALKALINE PHOSPHATASE 237 IU/L (46-116); ANION GAP 7 (8-16); ASPARTATE AMINO TRANSFERASE 137 U/L (10-37); BLOOD UREA NITROGEN 83 MG/DL (7-18); BUN/CREATININE RATIO 39.7 (5.4-32.0); CHLORIDE 110 MMOL/L (99-107); CREATININE 2.09 MG/DL (0.60-1.10); GLUCOSE 115 MG/DL (70-104); PHOSPHORUS 3.2 MG/DL (2.3-4.5); POTASSIUM 3.4 MMOL/L (3.5-5.1); SODIUM 150 MMOL/L (135-145); TOTAL CARBON DIOXIDE 33.3 MMOL/L (24-32); TOTAL PROTEIN 6.3 G/DL (6.4-8.2); eGFR 31 ML/MIN
[2017-11-14] MEDS ORDERED: potassium Cl 40MEQ/NS 500ml 500 ML IV PRN ×2 (06:50)
[2017-11-14] MEDS ORDERED: potassium Cl 20 mEq SR tablet PO PRN (06:50)
[2017-11-14] MEDS: K and/or MAG REPLACEMENT MC SCH (08:00)
[2017-11-14] MEDS: LACTOSE-FREE FOOD 237ML (BOOST) PO SCH ×3 (08:00→18:00)
[2017-11-14] MEDS: cefTRIAXone 1g/NS 100ml IVPB 100 ML IV SCH (08:19)
[2017-11-14] MEDS: lactobacillus rhamnosus 10,000 MMU CELLS/CAPSULE PO SCH ×2 (08:27→21:47)
[2017-11-14] MEDS: clopidogrel 75mg tablet PO SCH (08:27)
[2017-11-14] MEDS: aspirin 81mg tab.chew PO SCH (08:28)
[2017-11-14] MEDS: potassium Cl 20 mEq SR tablet PO PRN ×3 (08:28→15:56)
[2017-11-14] MEDS: predniSONE 20 mg tablet PO SCH (08:28)
[2017-11-14 13:28] LABS: HBSAG SCREEN Negative (Negative); HEP A AB, IGM Negative (Negative); HEP B CORE AB, IGM Negative (Negative); HEPATITIS C ANTIBODY <0.1 s/co ratio (0.0-0.9)
[2017-11-14 15:19] VITALS: BP 121/56
[2017-11-14] MEDS: lactulose 20gm/30ml cup PO SCH ×2 (15:56→21:46)
[2017-11-14] MEDS ORDERED: furosemide 40mg/4ml inj IV ONE (16:25)
[2017-11-14 19:00] VITALS: BP 135/60
[2017-11-14 23:00] VITALS: BP 136/68
[2017-11-15 03:00] VITALS: BP 130/62
[2017-11-15] MEDS: ipratropium/albuterol 3ml nebule NEB SCH ×4 (03:00→19:59)
[2017-11-15 05:30] VITALS: BP 136/58
[2017-11-15 06:39] LABS: BASOPHILS % (AUTO) 0 % (0-1); EOSINOPHILS # (AUTO) 0.1 X10'3 (0-0.9); EOSINOPHILS % (AUTO) 0.5 % (0-6); HEMATOCRIT 36.3 % (42.0-52.0); HEMOGLOBIN 12.4 g/dl (14.0-17.9); LYMPHOCYTES # (AUTO) 0.3 X10'3 (1.1-4.8); LYMPHOCYTES % (AUTO) 1.4 % (21-51); MEAN CORPUSCULAR HGB CONC 34.1 % (33.0-36.5); MEAN CORPUSCULAR VOLUME 96.7 FL (78-98); MEAN PLATELET VOLUME 11.1 FL (7.4-10.4); MONOCYTES # (AUTO) 0.4 X10'3 (0-0.9); MONOCYTES % (AUTO) 1.9 % (2-12); NEUTROPHILS # (AUTO) 22.2 X10'3 (1.8-7.7); NEUTROPHILS % (AUTO) 96.2 % (42-75); PLATELET COUNT 198 X10'3 (140-440); RED BLOOD COUNT 3.76 X10'6 (4.70-6.10); RED CELL DISTRIBUTION WIDTH 16.4 % (11.5-14.5); WHITE BLOOD COUNT 23.1 X10'3 (4.5-11.0)
[2017-11-15 07:17] LABS: ALANINE AMINOTRANSFERASE 202 U/L (12-78); ALBUMIN 2.1 G/DL (3.4-5.0); ALBUMIN/GLOBULIN RATIO 0.5 (1.1-1.5); ALKALINE PHOSPHATASE 308 IU/L (46-116); ANION GAP 7 (8-16); ASPARTATE AMINO TRANSFERASE 174 U/L (10-37); BILIRUBIN,TOTAL 1.3 MG/DL (0.1-1.0); BLOOD UREA NITROGEN 73 MG/DL (7-18); BUN/CREATININE RATIO 39.9 (5.4-32.0); CALCIUM 8.4 MG/DL (8.5-10.1); CHLORIDE 109 MMOL/L (99-107); CREATININE 1.83 MG/DL (0.60-1.10); GLUCOSE 103 MG/DL (70-104); MAGNESIUM 1.8 MG/DL (1.5-2.4); PHOSPHORUS 2.4 MG/DL (2.3-4.5); POTASSIUM 3.8 MMOL/L (3.5-5.1); SODIUM 150 MMOL/L (135-145); TOTAL CARBON DIOXIDE 33.9 MMOL/L (24-32); TOTAL PROTEIN 6.6 G/DL (6.4-8.2); eGFR 36 ML/MIN
[2017-11-15 07:29] LABS: LARGE PLATELETS FEW; PLATELET ESTIMATE NORMAL
[2017-11-15 07:30] LABS: ANISOCYTOSIS 1+; TARGET CELLS 3+
[2017-11-15 07:46] LABS: ABG BASE EXCESS 8.3 mmol/L (-2.0-3.0); ABG HCO3 33.1 mmol/L (22.0-26.0); ABG OXYGEN SATURATION 89.2 % (95-98); ABG PCO2 (T) 46.8 mmHg (35.0-48.0); ABG PH (T) 7.467 (7.350-7.450); ABG PO2 (T) 58.8 mmHg (83-108); ALLEN'S TEST Positive; FCOHb 1.1 % (0.5-1.5); FLOW 6 L/min; FMetHb 0.3 % (0.3-1.12); TOTAL HEMOGLOBIN 11.6 G/dl (14.0-18.0)
[2017-11-15] MEDS: lactulose 20gm/30ml cup PO SCH ×3 (08:00→18:59)
[2017-11-15] MEDS: LACTOSE-FREE FOOD 237ML (BOOST) PO SCH ×3 (08:00→18:00)
[2017-11-15] MEDS: K and/or MAG REPLACEMENT MC SCH (08:00)
[2017-11-15] MEDS: cefTRIAXone 1g/NS 100ml IVPB 100 ML IV SCH (09:13)
[2017-11-15] MEDS: aspirin 81mg tab.chew PO SCH (09:14)
[2017-11-15] MEDS: clopidogrel 75mg tablet PO SCH (09:14)
[2017-11-15] MEDS: predniSONE 20 mg tablet PO SCH (09:14)
[2017-11-15] MEDS: lactobacillus rhamnosus 10,000 MMU CELLS/CAPSULE PO SCH ×2 (09:14→21:24)
[2017-11-15 11:00] VITALS: BP 115/56
[2017-11-15] MEDS: furosemide 40mg/4ml inj IV SCH ×3 (11:17→21:24)
[2017-11-15] MEDS: methylPREDNISolone sod succ 125mg/2ml vial IV SCH (11:18)
[2017-11-15 15:00] VITALS: BP 122/59
[2017-11-15] MEDS: piperacillin/tazo 3.375gm/50ml 50 ML IV SCH ×2 (15:01→21:24)
[2017-11-15 19:00] VITALS: BP 136/69
[2017-11-15 23:00] VITALS: BP 111/50
[2017-11-16] VITALS (7 sets, daily range): BP systolic 103–126; BP diastolic 42–60
[2017-11-16] MEDS: piperacillin/tazo 3.375gm/50ml 50 ML IV SCH ×4 (02:30→19:33)
[2017-11-16] MEDS: ipratropium/albuterol 3ml nebule NEB SCH ×4 (04:32→16:16)
[2017-11-16] MEDS: K and/or MAG REPLACEMENT MC SCH (08:00)
[2017-11-16] MEDS: lactulose 20gm/30ml cup PO SCH (08:00)
[2017-11-16] MEDS: furosemide 40mg/4ml inj IV SCH ×3 (08:00→19:33)
[2017-11-16] MEDS: lactobacillus rhamnosus 10,000 MMU CELLS/CAPSULE PO SCH ×2 (08:09→19:39)
[2017-11-16] MEDS: aspirin 81mg tab.chew PO SCH (08:09)
[2017-11-16] MEDS: clopidogrel 75mg tablet PO SCH (08:09)
[2017-11-16] MEDS: methylPREDNISolone sod succ 125mg/2ml vial IV SCH (08:10)
[2017-11-16 09:43] LABS: BASOPHILS % (AUTO) 0 % (0-1); EOSINOPHILS % (AUTO) 0 % (0-6); HEMATOCRIT 30.3 % (42.0-52.0); HEMOGLOBIN 10.1 g/dl (14.0-17.9); LYMPHOCYTES # (AUTO) 0.5 X10'3 (1.1-4.8); LYMPHOCYTES % (AUTO) 2.1 % (21-51); MEAN CORPUSCULAR HEMOGLOBIN 32.1 PG (27.0-31.0); MEAN CORPUSCULAR HGB CONC 33.3 % (33.0-36.5); MEAN CORPUSCULAR VOLUME 96.2 FL (78-98); MEAN PLATELET VOLUME 11.4 FL (7.4-10.4); MONOCYTES # (AUTO) 0.7 X10'3 (0-0.9); NEUTROPHILS # (AUTO) 22.1 X10'3 (1.8-7.7); NEUTROPHILS % (AUTO) 94.9 % (42-75); PLATELET COUNT 146 X10'3 (140-440); RED BLOOD COUNT 3.16 X10'6 (4.70-6.10); RED CELL DISTRIBUTION WIDTH 16.3 % (11.5-14.5); WHITE BLOOD COUNT 23.3 X10'3 (4.5-11.0)
[2017-11-16 09:56] LABS: ALANINE AMINOTRANSFERASE 116 U/L (12-78); ALBUMIN 1.7 G/DL (3.4-5.0); ALBUMIN/GLOBULIN RATIO 0.4 (1.1-1.5); ALKALINE PHOSPHATASE 206 IU/L (46-116); ANION GAP 6 (8-16); ASPARTATE AMINO TRANSFERASE 81 U/L (10-37); BILIRUBIN,TOTAL 0.8 MG/DL (0.1-1.0); BLOOD UREA NITROGEN 80 MG/DL (7-18); BUN/CREATININE RATIO 38.1 (5.4-32.0); CALCIUM 7.9 MG/DL (8.5-10.1); CHLORIDE 105 MMOL/L (99-107); GLUCOSE 157 MG/DL (70-104); POTASSIUM 3.2 MMOL/L (3.5-5.1); SODIUM 149 MMOL/L (135-145); TOTAL CARBON DIOXIDE 37.9 MMOL/L (24-32); TOTAL PROTEIN 5.7 G/DL (6.4-8.2); eGFR 31 ML/MIN
[2017-11-16] MEDS ORDERED: lactulose 20gm/30ml cup PO PRN (10:50)
[2017-11-16] MEDS: potassium Cl 20 mEq SR tablet PO PRN (14:13)
[2017-11-17 03:00] VITALS: BP 126/59
[2017-11-17] MEDS: piperacillin/tazo 3.375gm/50ml 50 ML IV SCH ×4 (03:00→20:24)
[2017-11-17] MEDS: potassium Cl 20 mEq SR tablet PO PRN ×4 (03:00→23:25)
[2017-11-17] MEDS: ipratropium/albuterol 3ml nebule NEB SCH ×4 (03:58→21:34)
[2017-11-17 05:30] VITALS: BP 132/60
[2017-11-17 06:32] LABS: HEMATOCRIT 31.5 % (42.0-52.0); HEMOGLOBIN 10.8 g/dl (14.0-17.9); MEAN CORPUSCULAR HGB CONC 34.3 % (33.0-36.5); MEAN CORPUSCULAR VOLUME 96.1 FL (78-98); MEAN PLATELET VOLUME 12.6 FL (7.4-10.4); PLATELET COUNT 177 X10'3 (140-440); RED BLOOD COUNT 3.28 X10'6 (4.70-6.10)
[2017-11-17 06:43] LABS: WHITE BLOOD COUNT 26.8 X10'3 (4.5-11.0)
[2017-11-17 07:13] LABS: ALANINE AMINOTRANSFERASE 155 U/L (12-78); ALBUMIN 1.8 G/DL (3.4-5.0); ALBUMIN/GLOBULIN RATIO 0.4 (1.1-1.5); ALKALINE PHOSPHATASE 277 IU/L (46-116); ANION GAP 6 (8-16); ASPARTATE AMINO TRANSFERASE 119 U/L (10-37); BILIRUBIN,TOTAL 0.9 MG/DL (0.1-1.0); BLOOD UREA NITROGEN 89 MG/DL (7-18); BUN/CREATININE RATIO 42.4 (5.4-32.0); CALCIUM 7.9 MG/DL (8.5-10.1); CHLORIDE 105 MMOL/L (99-107); GLUCOSE 115 MG/DL (70-104); POTASSIUM 3.3 MMOL/L (3.5-5.1); SODIUM 151 MMOL/L (135-145); TOTAL CARBON DIOXIDE 39.7 MMOL/L (24-32); TOTAL PROTEIN 6.1 G/DL (6.4-8.2); eGFR 31 ML/MIN
[2017-11-17 07:37] LABS: ANISOCYTOSIS 1+; LARGE PLATELETS FEW; PLATELET ESTIMATE NORMAL; POLYCHROMASIA FEW; TARGET CELLS 1+; TOTAL CELLS COUNTED 100
[2017-11-17] MEDS: methylPREDNISolone sod succ 125mg/2ml vial IV SCH (08:00)
[2017-11-17] MEDS: lactobacillus rhamnosus 10,000 MMU CELLS/CAPSULE PO SCH ×2 (08:00→20:24)
[2017-11-17] MEDS: clopidogrel 75mg tablet PO SCH (08:00)
[2017-11-17] MEDS: K and/or MAG REPLACEMENT MC SCH (08:00)
[2017-11-17] MEDS: furosemide 40mg/4ml inj IV SCH (08:00)
[2017-11-17] MEDS: aspirin 81mg tab.chew PO SCH (08:30)
[2017-11-17 11:00] VITALS: BP 132/60
[2017-11-17] MEDS ORDERED: potassium Cl 20 mEq SR tablet PO PRN (11:45)
[2017-11-17] MEDS ORDERED: POTASSIUM 40MEQ/500ML NS ***PERIPHERAL LINE REPLACE IV PRN (11:50)
[2017-11-17 15:00] VITALS: BP 94/46
[2017-11-17 18:00] VITALS: BP 112/53
[2017-11-17 22:00] VITALS: BP 121/61
[2017-11-18 02:00] VITALS: BP 138/72
[2017-11-18] MEDS: ipratropium/albuterol 3ml nebule NEB SCH ×4 (03:00→20:15)
[2017-11-18] MEDS: piperacillin/tazo 3.375gm/50ml 50 ML IV SCH ×4 (03:03→20:24)
[2017-11-18 06:31] LABS: BASOPHILS % (AUTO) 0 % (0-1); EOSINOPHILS % (AUTO) 0 % (0-6); HEMATOCRIT 30.1 % (42.0-52.0); HEMOGLOBIN 10.3 g/dl (14.0-17.9); LYMPHOCYTES # (AUTO) 0.6 X10'3 (1.1-4.8); LYMPHOCYTES % (AUTO) 3.1 % (21-51); MEAN CORPUSCULAR HEMOGLOBIN 32.6 PG (27.0-31.0); MEAN CORPUSCULAR HGB CONC 34.3 % (33.0-36.5); MEAN CORPUSCULAR VOLUME 95.1 FL (78-98); NEUTROPHILS # (AUTO) 19.1 X10'3 (1.8-7.7); NEUTROPHILS % (AUTO) 91.9 % (42-75); PLATELET COUNT 146 X10'3 (140-440); RED BLOOD COUNT 3.17 X10'6 (4.70-6.10); RED CELL DISTRIBUTION WIDTH 15.8 % (11.5-14.5); WHITE BLOOD COUNT 20.7 X10'3 (4.5-11.0)
[2017-11-18 06:35] VITALS: BP 124/61
[2017-11-18 06:53] LABS: ALANINE AMINOTRANSFERASE 179 U/L (12-78); ALBUMIN 1.6 G/DL (3.4-5.0); ALBUMIN/GLOBULIN RATIO 0.4 (1.1-1.5); ALKALINE PHOSPHATASE 276 IU/L (46-116); ANION GAP 5 (8-16); ASPARTATE AMINO TRANSFERASE 139 U/L (10-37); BILIRUBIN,TOTAL 1.1 MG/DL (0.1-1.0); BLOOD UREA NITROGEN 80 MG/DL (7-18); BUN/CREATININE RATIO 40.8 (5.4-32.0); CALCIUM 7.9 MG/DL (8.5-10.1); CHLORIDE 104 MMOL/L (99-107); CREATININE 1.96 MG/DL (0.60-1.10); GLUCOSE 110 MG/DL (70-104); SODIUM 148 MMOL/L (135-145); TOTAL CARBON DIOXIDE 39.4 MMOL/L (24-32); TOTAL PROTEIN 5.8 G/DL (6.4-8.2); eGFR 34 ML/MIN
[2017-11-18 06:55] LABS: POTASSIUM 3.9 MMOL/L (3.5-5.1)
[2017-11-18] MEDS: K and/or MAG REPLACEMENT MC SCH (07:06)
[2017-11-18 07:50] LABS: ANISOCYTOSIS 1+; LARGE PLATELETS MODERATE; PLATELET ESTIMATE NORMAL
[2017-11-18 07:51] LABS: POLYCHROMASIA 1+; TARGET CELLS 4+
[2017-11-18] MEDS: clopidogrel 75mg tablet PO SCH (09:02)
[2017-11-18] MEDS: methylPREDNISolone sod succ 125mg/2ml vial IV SCH (09:02)
[2017-11-18] MEDS: aspirin 81mg tab.chew PO SCH (09:02)
[2017-11-18] MEDS: lactobacillus rhamnosus 10,000 MMU CELLS/CAPSULE PO SCH ×2 (09:02→20:24)
[2017-11-18 11:00] VITALS: BP 135/55
[2017-11-18 15:00] VITALS: BP 120/60
[2017-11-18 18:00] VITALS: BP 128/59
[2017-11-18 22:00] VITALS: BP 121/54
[2017-11-19] MEDS: piperacillin/tazo 3.375gm/50ml 50 ML IV SCH ×4 (01:32→20:20)
[2017-11-19 02:00] VITALS: BP 124/58
[2017-11-19] MEDS: ipratropium/albuterol 3ml nebule NEB SCH ×4 (03:32→20:27)
[2017-11-19] MEDS: K and/or MAG REPLACEMENT MC SCH (08:00)
[2017-11-19] MEDS: lactobacillus rhamnosus 10,000 MMU CELLS/CAPSULE PO SCH ×2 (08:38→20:20)
[2017-11-19] MEDS: clopidogrel 75mg tablet PO SCH (08:38)
[2017-11-19] MEDS: aspirin 81mg tab.chew PO SCH (08:38)
[2017-11-19] MEDS: predniSONE 20 mg tablet PO SCH (08:39)
[2017-11-19 11:00] VITALS: BP 122/50
[2017-11-19 11:07] LABS: BASOPHILS % (AUTO) 0 % (0-1); EOSINOPHILS # (AUTO) 0.3 X10'3 (0-0.9); EOSINOPHILS % (AUTO) 1.5 % (0-6); HEMATOCRIT 30.2 % (42.0-52.0); HEMOGLOBIN 10.4 g/dl (14.0-17.9); LYMPHOCYTES # (AUTO) 0.5 X10'3 (1.1-4.8); LYMPHOCYTES % (AUTO) 2.6 % (21-51); MEAN CORPUSCULAR HEMOGLOBIN 32.5 PG (27.0-31.0); MEAN CORPUSCULAR HGB CONC 34.3 % (33.0-36.5); MEAN CORPUSCULAR VOLUME 94.8 FL (78-98); MEAN PLATELET VOLUME 12.3 FL (7.4-10.4); MONOCYTES # (AUTO) 1.1 X10'3 (0-0.9); MONOCYTES % (AUTO) 6.3 % (2-12); NEUTROPHILS # (AUTO) 16.2 X10'3 (1.8-7.7); NEUTROPHILS % (AUTO) 89.6 % (42-75); PLATELET COUNT 141 X10'3 (140-440); RED BLOOD COUNT 3.18 X10'6 (4.70-6.10); RED CELL DISTRIBUTION WIDTH 16.4 % (11.5-14.5); WHITE BLOOD COUNT 18.1 X10'3 (4.5-11.0)
[2017-11-19 11:18] LABS: LARGE PLATELETS FEW; PLATELET ESTIMATE NORMAL
[2017-11-19 11:24] LABS: ALANINE AMINOTRANSFERASE 209 U/L (12-78); ALBUMIN 1.7 G/DL (3.4-5.0); ALBUMIN/GLOBULIN RATIO 0.4 (1.1-1.5); ALKALINE PHOSPHATASE 327 IU/L (46-116); ANION GAP 4 (8-16); ASPARTATE AMINO TRANSFERASE 167 U/L (10-37); BILIRUBIN,TOTAL 1.2 MG/DL (0.1-1.0); BLOOD UREA NITROGEN 72 MG/DL (7-18); BUN/CREATININE RATIO 37.3 (5.4-32.0); CHLORIDE 104 MMOL/L (99-107); CREATININE 1.93 MG/DL (0.60-1.10); GLUCOSE 152 MG/DL (70-104); POTASSIUM 3.5 MMOL/L (3.5-5.1); SODIUM 146 MMOL/L (135-145); TOTAL CARBON DIOXIDE 38.1 MMOL/L (24-32); TOTAL PROTEIN 6.1 G/DL (6.4-8.2); eGFR 34 ML/MIN
[2017-11-19] MEDS: furosemide 20MG tablet PO SCH ×2 (11:27→20:21)
[2017-11-19 15:00] VITALS: BP 101/50
[2017-11-19] MEDS ORDERED: loperamide 2mg capsule PO PRN (17:45)
[2017-11-19 19:00] VITALS: BP 151/63
[2017-11-19 22:00] VITALS: BP 135/58
[2017-11-20] MEDS: piperacillin/tazo 3.375gm/50ml 50 ML IV SCH ×3 (01:50→14:30)
[2017-11-20 02:00] VITALS: BP 132/50
[2017-11-20] MEDS: ipratropium/albuterol 3ml nebule NEB SCH ×3 (02:17→14:27)
[2017-11-20 05:42] LABS: BASOPHILS % (AUTO) 0 % (0-1); EOSINOPHILS # (AUTO) 0.2 X10'3 (0-0.9); EOSINOPHILS % (AUTO) 0.8 % (0-6); HEMATOCRIT 23.8 % (42.0-52.0); LYMPHOCYTES # (AUTO) 1.3 X10'3 (1.1-4.8); LYMPHOCYTES % (AUTO) 5.4 % (21-51); MEAN CORPUSCULAR HEMOGLOBIN 32.5 PG (27.0-31.0); MEAN CORPUSCULAR HGB CONC 33.6 % (33.0-36.5); MEAN CORPUSCULAR VOLUME 96.7 FL (78-98); MEAN PLATELET VOLUME 12.2 FL (7.4-10.4); MONOCYTES # (AUTO) 1.1 X10'3 (0-0.9); MONOCYTES % (AUTO) 4.7 % (2-12); NEUTROPHILS # (AUTO) 21.3 X10'3 (1.8-7.7); NEUTROPHILS % (AUTO) 89.1 % (42-75); PLATELET COUNT 141 X10'3 (140-440); RED BLOOD COUNT 2.46 X10'6 (4.70-6.10); RED CELL DISTRIBUTION WIDTH 16.5 % (11.5-14.5)
[2017-11-20 05:59] LABS: ALANINE AMINOTRANSFERASE 167 U/L (12-78); ALBUMIN 1.5 G/DL (3.4-5.0); ALBUMIN/GLOBULIN RATIO 0.4 (1.1-1.5); ALKALINE PHOSPHATASE 260 IU/L (46-116); ANION GAP 4 (8-16); ASPARTATE AMINO TRANSFERASE 99 U/L (10-37); BILIRUBIN,TOTAL 1.1 MG/DL (0.1-1.0); BLOOD UREA NITROGEN 62 MG/DL (7-18); BUN/CREATININE RATIO 37.8 (5.4-32.0); CALCIUM 7.9 MG/DL (8.5-10.1); CHLORIDE 104 MMOL/L (99-107); CREATININE 1.64 MG/DL (0.60-1.10); GLUCOSE 87 MG/DL (70-104); POTASSIUM 3.1 MMOL/L (3.5-5.1); PREALBUMIN 18.5 MG/DL (19-36); SODIUM 146 MMOL/L (135-145); TOTAL CARBON DIOXIDE 38.2 MMOL/L (24-32); TOTAL PROTEIN 5.7 G/DL (6.4-8.2); eGFR 41 ML/MIN
[2017-11-20 06:00] VITALS: BP 133/57
[2017-11-20 07:24] LABS: ANISOCYTOSIS 1+; HYPOCHROMASIA 1+; PLATELET ESTIMATE NORMAL; TARGET CELLS 2+
[2017-11-20] MEDS: K and/or MAG REPLACEMENT MC SCH (08:00)
[2017-11-20] MEDS: lactobacillus rhamnosus 10,000 MMU CELLS/CAPSULE PO SCH (08:39)
[2017-11-20] MEDS: predniSONE 20 mg tablet PO SCH (08:41)
[2017-11-20] MEDS: aspirin 81mg tab.chew PO SCH (08:41)
[2017-11-20] MEDS: clopidogrel 75mg tablet PO SCH (08:41)
[2017-11-20] MEDS: furosemide 20MG tablet PO SCH (08:42)
[2017-11-20] MEDS: potassium Cl 20 mEq SR tablet PO PRN ×3 (08:43→16:27)
[2017-11-20 11:00] VITALS: BP 102/44
[2017-11-20] MEDS ORDERED: potassium Cl 40MEQ/NS 500ml 500 ML IV PRN ×2 (12:35)
[2017-11-20] MEDS ORDERED: potassium Cl 20 mEq SR tablet PO PRN (12:35)
[2017-11-20 15:00] VITALS: BP 114/50
== END 2017-11-20 16:30 | DRG 177 ==
LOC: ER 12:13 → ED HOLD 15:09 → PCU 3S 19:38
PROVIDERS: ADMIT Internal Medicine; ATTEND Internal Medicine
PROC: 5A09357 Assistance with Respiratory Ventilation, Less than 24 Consecutive Hours, Continuous Positive Airway Pressure (ICD-10-PCS; 2017-11-04)
PROC: 5A09357 Assistance with Respiratory Ventilation, Less than 24 Consecutive Hours, Continuous Positive Airway Pressure (ICD-10-PCS; 2017-11-05)
PROC: 5A09357 Assistance with Respiratory Ventilation, Less than 24 Consecutive Hours, Continuous Positive Airway Pressure (ICD-10-PCS; 2017-11-06)
PROC: 5A09357 Assistance with Respiratory Ventilation, Less than 24 Consecutive Hours, Continuous Positive Airway Pressure (ICD-10-PCS; 2017-11-07)
PROC: BW251ZZ Computerized Tomography (CT Scan) of Chest, Abdomen and Pelvis using Low Osmolar Contrast (ICD-10-PCS; principal; 2017-11-08)
PROC: 5A09457 Assistance with Respiratory Ventilation, 24-96 Consecutive Hours, Continuous Positive Airway Pressure (ICD-10-PCS; 2017-11-08)
PROC: 5A09357 Assistance with Respiratory Ventilation, Less than 24 Consecutive Hours, Continuous Positive Airway Pressure (ICD-10-PCS; 2017-11-10)
DX: J69.0 Pneumonitis due to inhalation of food and vomit (principal); I50.23 Acute on chronic systolic (congestive) heart failure; J96.21 Acute and chronic respiratory failure with hypoxia; E87.0 Hyperosmolality and hypernatremia; I95.9 Hypotension, unspecified; N18.4 Chronic kidney disease, stage 4 (severe); I42.9 Cardiomyopathy, unspecified; N17.9 Acute kidney failure, unspecified; I13.0 Hypertensive heart and chronic kidney disease with heart failure and stage 1 through stage 4 chronic kidney disease, or unspecified chronic kidney disease; D64.9 Anemia, unspecified; J44.0 Chronic obstructive pulmonary disease with (acute) lower respiratory infection; B17.9 Acute viral hepatitis, unspecified; E86.0 Dehydration; E07.9 Disorder of thyroid, unspecified; E87.6 Hypokalemia; E78.00 Pure hypercholesterolemia, unspecified; E78.5 Hyperlipidemia, unspecified; I25.10 Atherosclerotic heart disease of native coronary artery without angina pectoris; F17.210 Nicotine dependence, cigarettes, uncomplicated; I25.2 Old myocardial infarction; Z95.1 Presence of aortocoronary bypass graft; Z95.810 Presence of automatic (implantable) cardiac defibrillator; Z98.61 Coronary angioplasty status; Z88.6 Allergy status to analgesic agent; Z79.82 Long term (current) use of aspirin; Z79.899 Other long term (current) drug therapy; Z82.49 Family history of ischemic heart disease and other diseases of the circulatory system; Z82.5 Family history of asthma and other chronic lower respiratory diseases
CPT/HCPCS: 36415; 36600; 70450; 71045; 71250; 74176; 76700; 80048; 80053; 80074; 80076; 81001; 82140; 82570; 82803; 83605; 83735; 83880; 84100; 84134; 84145; 84300; 84439; 84443; 84484; 85018; 85025; 85610; 85730; 87040; 87070; 87324; 87449; 87502; 87503; 92616; 93005; 93306; 93880; 94640; 94660; 94667; 94668; 94760; 97110; 97162; 97530; 99291; A4315; A4353; A6209; A6212; A6213; A6250; A6251; A6258; A6449; A9270; J0456; J0696; J1940; J1956; J2060; J2405; J2543; J2930; J3480; J7030; J7060; J7512; P9047